=== PATIENT | female | born 1965 | race Caucasian/White ===

== ENCOUNTER 2017-09-29 18:44 | Emergency (ER) | payer OTHER ==
[~2017-09-29] VITALS: Ht 160 cm; Wt 59.1 kg
[2017-09-29] MEDS ORDERED: NAPR-58 PO (18:55)
[2017-09-29] MEDS ORDERED: OXYC20 PO (18:55)
[2017-09-29] MEDS ORDERED: OXYC10 PO (18:55)
[2017-09-29 19:08] VITALS: BP 125/77
== END 2017-09-29 20:47 | disposition left against medical advice (07) ==
LOC: EMS 18:46
DX: R11.2 Nausea with vomiting, unspecified (principal); Z53.21 Procedure and treatment not carried out due to patient leaving prior to being seen by health care provider
CPT/HCPCS: 93005; 99281